=== PATIENT | male | born 1990 | race Caucasian/White ===

== ENCOUNTER 2018-03-14 09:38 | Emergency (ER) | payer SELFPAY, OTHER ==
[2018-03-14] MEDS: NAPROXEN 250 MG TAB PO (11:58)
[2018-03-14] MEDS: METHOCARBAMOL 750 MG TAB PO (11:59)
== END 2018-03-14 11:59 | disposition home or self-care (01) ==
LOC: M ED 09:38
DX: M54.2 Cervicalgia (principal); Z79.899 Other long term (current) drug therapy
CPT/HCPCS: 70450

== ENCOUNTER → 2020-01-05 | Outpatient (CLI) | payer MEDICAID ==
[~2020-01-05] MED LIST: CLAR10CA3 PO; NAPR-885 PO; ROBA500T PO
== END ==
LOC: M OUTALCOH 08:14
PROVIDERS: ATTEND Psychiatry & Neurology Addiction Medicine
DX: Z03.89 Encounter for observation for other suspected diseases and conditions ruled out (principal)

== ENCOUNTER 2020-01-24 08:00 | Outpatient (RCR) | payer MEDICAID | END 2020-01-27 | LOC: M OUTALCOH 08:00 | PROVIDERS: ATTEND Psychiatry & Neurology Addiction Medicine | DX: Z03.89 Encounter for observation for other suspected diseases and conditions ruled out (principal) ==

== ENCOUNTER 2020-10-19 07:38 | Emergency (ER) | payer MEDICAID, OTHER, SELFPAY ==
[~2020-10-19] VITALS: Ht 167.6 cm; Wt 79.5 kg
[2020-10-19] MEDS ORDERED: HYDR-3713 PO (08:15)
[2020-10-19 08:32] LABS: HEMATOCRIT 46.1 % (42.0-52.0); HEMOGLOBIN 15.9 g/dl (13.5-17.5); MEAN CORPUSCULAR HEMOGLOBIN 31.3 pg (27.0-33.0); MEAN CORPUSCULAR HGB CONC 34.5 g/dl (32.0-36.5); MEAN CORPUSCULAR VOLUME 90.7 fl (80.0-96.0); PLATELET COUNT, AUTOMATED 244 10^3/uL (150-450); RED BLOOD COUNT 5.08 10^6/uL (4.30-6.10); WHITE BLOOD COUNT 9.5 10^3/uL (4.0-10.0)
[2020-10-19 08:55] LABS: AMPHETAMINES LEVEL URINE NEGATIVE (NEGATIVE); BARBITURATES URINE NEGATIVE (NEGATIVE); BENZODIAZEPINES URINE NEGATIVE (NEGATIVE); CANNABINOIDS URINE POSITIVE (NEGATIVE); COCAINE METABOLITE URINE NEGATIVE (NEGATIVE); METHADONE URINE NEGATIVE (NEGATIVE); OPIATES URINE POSITIVE (NEGATIVE); PHENCYCLIDINE URINE NEGATIVE (NEGATIVE)
[2020-10-19] MEDS ORDERED: FLUTICASONE PROP 0.05% NASAL SPRAY 16 GM (FLONASE) NARES SCH (09:00)
[2020-10-19] MEDS ORDERED: VITAMIN D 1,000 INTERNATIONAL UNITS TABLET PO SCH (09:00)
[2020-10-19] MEDS ORDERED: CETIRIZINE (ZyrTEC) 10 MG TAB PO ONE (09:00)
[2020-10-19] MEDS ORDERED: FOLIC ACID 1 MG TAB PO SCH (09:00)
[2020-10-19] MEDS ORDERED: THIAMINE 100 MG TAB PO SCH (09:00)
[2020-10-19] MEDS ORDERED: MULTIVITAMINS/MINERALS THERAP 1 TAB PO SCH (09:00)
[2020-10-19] MEDS ORDERED: SERTRALINE HCL 25 MG TABLET PO ONE (09:00)
[2020-10-19 09:02] LABS: ACETAMINOPHEN LEVEL < 2.0 UG/ML (10.0-30.0); ALBUMIN 4.6 GM/DL (3.2-5.2); ALT/SGPT 39 U/L (12-78); BILIRUBIN,DIRECT 0.2 MG/DL (0.0-0.2); BILIRUBIN,TOTAL 0.8 MG/DL (0.2-1.0); BLOOD UREA NITROGEN 13 MG/DL (7-18); CALCIUM LEVEL 8.5 MG/DL (8.5-10.1); CARBON DIOXIDE LEVEL 28 MEQ/L (21-32); CHLORIDE LEVEL 108 MEQ/L (98-107); CREATININE FOR GFR 0.87 MG/DL (0.70-1.30); ETHYL ALCOHOL (ETHANOL) 0.129 % (0.000-0.010); GLOMERULAR FILTRATION RATE > 60.0 (>60); GLUCOSE, FASTING 96 MG/DL (70-100); POTASSIUM SERUM 3.8 MEQ/L (3.5-5.1); SALICYLATE LEVEL < 1.7 MG/DL (5.0-30.0); SODIUM LEVEL 143 MEQ/L (136-145); TOTAL PROTEIN 7.7 GM/DL (6.4-8.2)
[2020-10-19] MEDS ORDERED: LORazepam 2 MG TAB PO PRN (09:30)
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
--- NOTE | 2020-10-19 15:02 | ECGEPIP ---
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
[2020-10-19 17:28] VITALS: BP 147/89
== END 2020-10-19 17:30 ==
LOC: M ED 07:38
DX: Z04.6 Encounter for general psychiatric examination, requested by authority (principal); R45.851 Suicidal ideations; S00.81XA Abrasion of other part of head, initial encounter; Y04.8XXA Assault by other bodily force, initial encounter; Y92.89 Other specified places as the place of occurrence of the external cause; Y93.89 Activity, other specified; Y99.8 Other external cause status
CPT/HCPCS: 36415; 70450; 80048; 80076; 80307; 84443; 85027; 93005; 99284; G0480; U0002

== ENCOUNTER 2021-01-25 09:43 | Emergency (ER) | payer OTHER, SELFPAY ==
[~2021-01-25] VITALS: Ht 172.7 cm; Wt 74.4 kg
[~2021-01-25 09:43] MED LIST changes: +HYDR-3713 PO
[2021-01-25] MEDS ORDERED: NS 1,000 ML IV SCH (09:50)
[2021-01-25] MEDS ORDERED: BUSP10TA PO (09:58)
[2021-01-25 13:08] LABS: AMPHETAMINES LEVEL URINE NEGATIVE (NEGATIVE); BARBITURATES URINE NEGATIVE (NEGATIVE); BENZODIAZEPINES URINE NEGATIVE (NEGATIVE); CANNABINOIDS URINE POSITIVE (NEGATIVE); COCAINE METABOLITE URINE POSITIVE (NEGATIVE); METHADONE URINE NEGATIVE (NEGATIVE); OPIATES URINE POSITIVE (NEGATIVE); PHENCYCLIDINE URINE NEGATIVE (NEGATIVE)
--- OUTSIDE RECORDS SUMMARY | 2021-01-25 13:32 | CCD ---
Author Author [facility] Organization [facility] Address Unknown Phone Unavailable Care Team Providers Care Dip Unit Operator Name Role Phone SYSTEM IN, NOT IN PROVIDER Unavailable Unavailable Re-disclosure Warning The records that you are about to access may contain information from federally-assisted alcohol or drug abuse programs. If such information is present, then the following federally mandated warning applies: This information has been disclosed to you from records protected by federal confidentiality rules (42 CFR part 2). The federal rules prohibit you from making any further disclosure of this information unless further disclosure is expressly permitted by the written consent of the person to whom it pertains or as otherwise permitted by 42 CFR part 2. A general authorization for the release of medical or other information is NOT sufficient for this purpose. The Federal rules restrict any use of the information to criminally investigate or prosecute any alcohol or drug abuse patient.The records that you are about to access may contain highly sensitive health information, the redisclosure of which is protected by Article 27-F of the [facility] Public Health law. If you continue you may have access to information: Regarding HIV / AIDS; Provided by facilities licensed or operated by the [facility] Office of Mental Health; or Provided by the [facility] Office for People With Developmental Disabilities. If such information is present, then the following [facility] mandated warning applies: This information has been disclosed to you from confidential records which are protected by state law. State law prohibits you from making any further disclosure of this information without the specific written consent of the person to whom it pertains, or as otherwise permitted by law. Any unauthorized further disclosure in violation of state law may result in a fine or shelter sentence or both. A general authorization for the release of medical or other information is NOT sufficient authorization for further disc losure. Family History Family Member Name Family Member Gender Family Member Status Date o f Status Description Data Source(s) Unknown Female Problem [facility] ([facility]) Encounters Encounter Providers Location Date Indications Data Source(s ) Outpatient Referrer: PROVIDER SYSTEM IN 10/19/2020 02:25:0 0 PM [facility] Depression Insurance Providers Payer name Policy type / Coverage type Policy ID Covered republican ID Covered republican's relationship to h[place] Policy [place] Plan Information [employer] [id number] SP [id number] SELF PAY ONLY [id number] SP [id number] [place] [id number] SP [id number] [facility] PLAN [facility] [id number] SP [id number] [facility] [id number] SP [id number] MEDICAID [id number] SP [id number] SELF PAY ONLY [id number] SP [id number] [facility] [id number] SP [id number] P HEALTH CARE O [id number] S [id number] [employer]-O/P [id number] 18 [id number] [facility] [id number] SP [id number] [employer] Part B Family Dependent [employer] Commercial Self [employer]-O/P [id number] 18 [id number] [employer] Workers Compensation Self [employer] Maintenance [employer] (HMO) Se lf [employer] Workers Compensation Self [employer] Med[employer] Part B Family Dependent BC/BS Of [place] Commercial Self [employer] PPO P [id number] S [id number] Problems, Conditions, and Diagnoses Code Display Name Description Problem Type Effective Dates Data Source(s) Depression Depression Diagnosis 10/19/2020 02:25:[address] [facility] Vital Signs ID Date Data Source [id number] 10/19/2020 02:25:07 PM [facility] Name Value Range Interpretation Code Description Data Source(s) TRANSFER FROM [facility]
--- OUTSIDE RECORDS SUMMARY | 2021-01-25 13:32 | CCD | Summary of Care ---
Demographics Preferred Language Unknown Marital Status Unknown Gnosticist Affiliation Unknown Race Unknown Ethnic Group Unknown Author Author [facility] Address Unknown Phone Unavailable Care Team Providers Care Advertising Inserter Name Role Phone PCP Unavailable Encounter Details Care Team Description Date Type Department 10/19/[address] [facility] TRANSFER CE NTER Encounter [address] [place] [address] Allergies Not on Filedocumented as of this encounter (statuses as of 11/03/2020) Medications Not on filedocumented as of this encounter (statuses as of 11/03/2020) Active Problems Not on filedocumented as of this encounter (statuses as of 11/03/2020) Social History Date Tobacco Use Types Packs/Day Years Used Never Assessed Sex Assigned at Date Recorded Not on file Date Recorded COVID-19 Exposure Response 10/19/2020 2:24 PM EST In the last month, have you been in contact with No / Unsure someone who was confirmed or suspected to have Coronavirus / COVID-19? documented as of this encounter Last Filed Vital Signs Not on filedocumented in this encounter Plan of Treatment Health Maintenance Due Date Last Done Comments MMR Vaccines (1 of - 1989 Standard series) Varicella Vaccines (1 of 1989 2 - 2-dose childhood series) DTaP,Tdap,and Td Vaccines 1995 (1 - Tdap) HIV Screening 2001 Influenza Vaccine 08/29/2020 Pneumococcal Vaccine: 65+ 2053 Years (1 of 1 - PPSV23) HIB Vaccines Aged Out No longer eligible based on patient's age to complete this topic Hepatitis A Vaccines Aged Out No longer eligibl e based on patient's age to complete this topic Hepatitis B Vaccines Aged Out No longer eligibl e based on patient's age to complete this topic IPV Vaccines Aged Out No longer eligible based on patient's age to complete this topic Pneumococcal Vaccine: Aged Out No longer eligib le based on patient's age to Pediatrics (0 to 5 Years) complete this topic and At-Risk Patients (6 to 64 Years) documented as of this encounter Results Not on filedocumented in this encounter
--- OUTSIDE RECORDS SUMMARY | 2021-01-25 14:33 | CCD ---
Author Author [facility] Organization [facility] Address Unknown Phone Unavailable Care Team Providers Care Inspector [employer] Name Role Phone SYSTEM IN, NOT IN [...] is protected by Article 27-F of the [facility] Public Health law. If you continue you may have access to information: Regarding HIV / AIDS; Provided by facilities licensed or operated by the [facility] Office of Mental Health; or Provided by the [facility] Office for People With Developmental Disabilities. If such information is present, then the following [facility] mandated warning applies: This information has [...] law may result in a fine or half-way sentence or both. A general authorization for [...] PROVIDER SYSTEM IN 10/19/2020 02:25:0 0 PM [facility] Depression Insurance Providers Payer name Policy type / Coverage type Policy ID Covered libertarian ID Covered libertarian's relationship to huddl[place] Policy [place] Plan Information SELF PAY ONLY [id number] SP [id number] [employer] PLAN [id number] SP [id number] [place] [id number] SP [id number] [facility] COMM[facility]ITY PLAN [facility] [id number] SP [id number] [facility] [id number] SP [id number] MEDICAID [id number] SP [id number] SELF PAY ONLY [id number] SP [id number] [employer] [facility] [id number] SP [id number] P HEALTH CARE O [id number] S [id number] [employer]/P [id number] 18 [id number] [facility] [id number] SP [id number] [employer] Medig[employer] Part B Family Dependent [employer] Commercial Self [employer]/P [id number] 18 [id number] [employer] Workers Compensation Self [employer] (HMO) Se lf [employer] Workers Compensation Self [employer] Medigap Part B Family Dependent BC/BS Of [place] Commercial Self [employer] PPO P [id number] S [id number] Problems, Conditions, and Diagnoses Code Display Name Description Problem Type Effective Dates Data Source(s) Depression Depression Diagnosis 10/19/2020 02:25:00 PM [facility] Vital Signs ID Date Data Source [id number] 10/19/2020 02:25:07 PM [facility] Name Value Range Interpretation Code Description Data Source(s) TRANSFER FROM [facility]
[2021-01-25 15:55] VITALS: BP 109/63
== END 2021-01-25 16:03 | disposition home or self-care (01) ==
LOC: M ED 09:43
DX: T40.1X1A Poisoning by heroin, accidental (unintentional), initial encounter (principal); Y92.89 Other specified places as the place of occurrence of the external cause; Y93.9 Activity, unspecified

== ENCOUNTER 2025-07-17 16:40 | Emergency (ER) | payer MEDICAID, OTHER, SELFPAY ==
[~2025-07-17] VITALS: Ht 167.6 cm; Wt 77.7 kg
[~2025-07-17 16:40] MED LIST changes: +BUSP10TA PO
[2025-07-17 20:57] VITALS: BP 123/82; TEMP 97.1; O2SAT 97
== END 2025-07-17 21:00 | disposition home or self-care (01) ==
LOC: M ED 16:40
DX: M48.02 Spinal stenosis, cervical region (principal); M50.322 Other cervical disc degeneration at C5-C6 level; M47.892 Other spondylosis, cervical region; M25.78 Osteophyte, vertebrae

== ENCOUNTER 2025-07-19 15:09 | Emergency (ER) | payer MEDICAID ==
[~2025-07-19] VITALS: Ht 170.2 cm; Wt 79.3 kg
[2025-07-19 23:21] VITALS: BP 143/86; TEMP 97.3; O2SAT 100
== END 2025-07-19 23:24 | disposition home or self-care (01) ==
LOC: M ED 15:09
DX: R20.2 Paresthesia of skin (principal); M47.812 Spondylosis without myelopathy or radiculopathy, cervical region